=== PATIENT | female | born 1995 | race Caucasian/White ===

== ENCOUNTER 2019-10-17 14:59 | Emergency (ER) | payer SELFPAY ==
[2019-10-17 15:18] VITALS: BP 115/72
--- NOTE | 2019-10-17 16:16 | XRay Report ---
CHEST 2 VIEWS INDICATION: Fever and persistent cough; Pt. C/o sore throat, fever, cough and chills. Pt. stable in triage, no c ough or fever noted. COMPARISON: None. FINDINGS: Support devices: None. Heart: Within normal limits. Pulmonary vasculature: Normal. Lungs/pleura: Lungs are normally expanded and clear. No airspace disease or pleural effusion. No pne umothorax. Additional findings: None. IMPRESSION: 1. Normal chest. Signer Name: Rudy Leroy MD Signed: 10/17/2019 4:12 PM Workstation Name: [id number]
== END 2019-10-17 19:30 | disposition left against medical advice (07) ==
LOC: ED 14:59
DX: J11.1 Influenza due to unidentified influenza virus with other respiratory manifestations (principal); Z53.21 Procedure and treatment not carried out due to patient leaving prior to being seen by health care provider
CPT/HCPCS: 71046

== ENCOUNTER 2020-11-13 12:59 | Outpatient (CLI) | payer MEDICAID, OTHER ==
[2020-11-13 13:54] VITALS: BP 109/68
[2020-11-13] MEDS ORDERED: BETAMET ACET/BETAMET NA PH 6 MG/ML INJ 5 ML MDV IM ONE (14:08)
== END 2020-11-13 14:30 | disposition home or self-care (01) ==
LOC: TRG 12:59 → APU 13:06 → TRG 14:30
PROVIDERS: ATTEND Obstetrics & Gynecology
DX: O36.5930 Maternal care for other known or suspected poor fetal growth, third trimester, not applicable or unspecified (principal); O47.03 False labor before 37 completed weeks of gestation, third trimester; Z3A.33 33 weeks gestation of pregnancy
CPT/HCPCS: 59025; 96372; J0702

== ENCOUNTER 2020-11-14 14:40 | Outpatient (CLI) | payer OTHER ==
[2020-11-14] MEDS ORDERED: BETAMET ACET/BETAMET NA PH 6 MG/ML INJ 5 ML MDV IM ONE (15:30)
[2020-11-14] MEDS ORDERED: LACTATED RINGERS 1,000 ML IV SCH (15:30)
[2020-11-14 16:02] VITALS: BP 126/86
--- NOTE | 2020-11-14 18:57 | Ultrasound Report ---
US OB BPP wo non-stress INDICATION / CLINICAL INFORMATION: well being. TECHNIQUE: Transabdominal. COMPARISON: None available. FINDINGS: heart rate is 141 bpm. Breech positioning. Biophysical Profile: breathing movements: 0 movements:2 posture and tone:2 Qualitative amniotic fluid volume: 2 IMPRESSION: 1. Biophysical profile 6 of 8. Signer Name: Orlin Black MD Signed: 11/14/2020 6:53 PM Workstation Name: [email or web address]
== END 2020-11-14 21:05 | disposition home or self-care (01) ==
LOC: TRG 14:40 → APU 14:41 → LD 14:46 → APU 14:46 → TRG 21:05
PROVIDERS: ATTEND Obstetrics & Gynecology
DX: O47.03 False labor before 37 completed weeks of gestation, third trimester (principal); Z3A.33 33 weeks gestation of pregnancy
CPT/HCPCS: 59025; 76819; 96360; 96361; 96372; J0702; J7120

== ENCOUNTER 2022-01-11 14:06 | Emergency (ER) | payer SELFPAY | END 2022-01-12 07:35 | disposition left against medical advice (07) | LOC: ED 14:06 | DX: R10.9 Unspecified abdominal pain (principal); Z53.21 Procedure and treatment not carried out due to patient leaving prior to being seen by health care provider ==